=== PATIENT | male | born 1975 | race Caucasian/White ===

== ENCOUNTER → 2016-07-27 | Outpatient (CLI) | payer OTHER ==
--- NOTE | 2016-07-27 08:08 | CT ---
EXAMINATION TYPE: CT chest w con DATE OF EXAM: 07/27/2016 7:59 AM COMPARISON: NONE HISTORY: SOB CT DLP: 264.60 mGycm Automated exposure control for dose reduction was used. CONTRAST: CT scan of the chest is performed with IV Contrast, patient injected with 100 ml mL of Omnipaque 300. FINDINGS: LUNGS: The lungs are grossly clear, there is no concerning parenchymal mass or nodule identified. T here is no pleural effusion or pneumothorax seen. The tracheobronchial tree is patent. MEDIASTINUM: There are no greater than 1 cm hilar or mediastinal lymph nodes. No pericardial effusi on is seen. OTHER: No additional significant abnormality is seen. IMPRESSION: 1. No evidence of acute intrathoracic process or sizable pulmonary nodule.
== END | disposition home or self-care (01) ==
LOC: RADCTMAIN 07:24
PROVIDERS: ATTEND Internal Medicine Critical Care Medicine
DX: R06.02 Shortness of breath (principal)
CPT/HCPCS: 71260; Q9967

== ENCOUNTER → 2020-03-21 | Outpatient (CLI) | payer OTHER ==
[2020-03-21 16:26] LABS: Basophils # (A) 0.1 k/uL (0-0.2); Basophils % (A) 1 %; Eosinophils # (A) 0.2 k/uL (0-0.7); Eosinophils % (A) 2 %; HCT 46.7 % (39.0-53.0); HGB 15.2 gm/dL (13.0-17.5); Lymphocytes # (A) 2.2 k/uL (1.0-4.8); Lymphocytes % (A) 32 %; MCH 26.9 pg (25.0-35.0); MCHC 32.6 g/dL (31.0-37.0); MCV 82.5 fL (80.0-100.0); Mean Platelet Volume 6.3; Monocytes # (A) 0.4 k/uL (0-1.0); Monocytes % (A) 6 %; Neutrophils # (A) 3.7 k/uL (1.3-7.7); Neutrophils % (A) 56 %; Platelet Count 257 k/uL (150-450); RBC 5.66 m/uL (4.30-5.90); RDW 13.6 % (11.5-15.5); WBC 6.7 k/uL (3.8-10.6)
[2020-03-21 23:01] LABS: African American GFR (CKD) 83.5 (60.0-200.0); Albumin 4.7 g/dL (3.80-4.90); Albumin/Globulin Ratio 2.24 (1.60-3.17); Anion Gap 8.5 mmol/L (4.00-12.00); BUN/Creat Ratio 18.33 Ratio (12.00-20.00); Calcium 9.8 mg/dL (8.7-10.3); Carbon Dioxide 26.5 mmol/L (21.6-31.8); Globulin 2.1 g/dL (1.6-3.3); Non-African American GFR(CKD) 72.1 (60.0-200.0); Total Bilirubin 0.3 mg/dL (0.3-1.2); Total Protein 6.8 g/dL (6.2-8.2)
[2020-03-22 00:30] LABS: Hepatitis A Antibody IgM Non-Reactive (Non-Reactive); Hepatitis B Core IgM Non-Reactive (Non-Reactive); Hepatitis B Surface Antigen Non-Reactive (Non-Reactive); Hepatitis C IgG Antibody Non-Reactive (Non-Reactive)
[2020-03-22 08:10] LABS: Chromatin Antibody <0.2 AI; DNA Double-Stranded NEGATIVE (NEGATIVE); JO-1 IgG Antibody <0.2 AI; Scleroderma SC-70 Ab <0.2 AI
== END | disposition home or self-care (01) ==
LOC: LABWHC1 15:07
PROVIDERS: ATTEND Allergy & Immunology
DX: T78.2XXA Anaphylactic shock, unspecified, initial encounter (principal); R74.0 Nonspecific elevation of levels of transaminase and lactic acid dehydrogenase [LDH]; R53.83 Other fatigue
CPT/HCPCS: 36415; 80053; 80074; 82977; 83516; 83520; 84443; 85025; 86038; 86225; 86235

== ENCOUNTER → 2020-06-04 | Outpatient (CLI) | payer OTHER | END | disposition home or self-care (01) | LOC: LABWHC1 09:51 | PROVIDERS: ATTEND Allergy & Immunology | DX: T78.2XXD Anaphylactic shock, unspecified, subsequent encounter (principal) | CPT/HCPCS: 36415; 83520 ==

== ENCOUNTER → 2020-07-09 | Outpatient (CLI) | payer OTHER ==
[2020-07-10 01:24] LABS: Soybean IgE <0.10 kU/L; Walnut IgE (Food) <0.10 kU/L
[2020-07-10 01:25] LABS: Peanut IgE <0.10 kU/L; Shrimp IgE <0.10 kU/L
[2020-07-10 03:23] LABS: Dog Dander IgE <0.10 kU/L; Egg White IgE <0.10 kU/L
[2020-07-10 03:24] LABS: Elm IgE <0.10 kU/L; Maple (Box Elder) IgE <0.10 kU/L
[2020-07-10 03:25] LABS: Oak IgE <0.10 kU/L
[2020-07-10 04:40] LABS: Cat Epith & Dander IgE <0.10 kU/L; Cladosporian herbarum IgE <0.10 kU/L; Dermato. farinae IgE <0.10 kU/L
[2020-07-10 04:41] LABS: Aspergillus fumagatus IgE <0.10 kU/L; Birch IgE <0.10 kU/L
[2020-07-10 12:04] LABS: Almond IgE <0.10 kU/L (<0.10); Almond IgE Class CLASS 0; Pecan IgE <0.10 kU/L (<0.10); Pecan IgE Class CLASS 0
[2020-07-10 12:06] LABS: Cashew IgE <0.10 kU/L (<0.10); Cashew IgE Class CLASS 0; Pistachio IgE Class CLASS 0; Pork IgE Class CLASS 0
[2020-07-10 12:07] LABS: Beef IgE <0.10 kU/L (<0.10); Beef IgE Class CLASS 0; Chocolate IgE Class CLASS 0; Salmon IgE <0.10 kU/L (<0.10); Salmon IgE Class CLASS 0
[2020-07-10 12:08] LABS: Alt. alternata IgE Class CLASS 0; Alternaria alternata IgE <0.10 kU/L (<0.10); Timothy Grass IgE <0.10 kU/L (<0.10); Timothy Grass IgE Class CLASS 0; Willow Tree IgE <0.10 kU/L (<0.10)
== END | disposition home or self-care (01) ==
LOC: LABWHC1 12:59
PROVIDERS: ATTEND Allergy & Immunology
DX: T78.2XXA Anaphylactic shock, unspecified, initial encounter (principal)
CPT/HCPCS: 36415; 86003

== ENCOUNTER 2022-04-13 10:03 | Emergency (ER) | payer OTHER ==
[2022-04-13 10:14] VITALS: PULSE 62
[2022-04-13 10:24] VITALS: BP 123/89; RESP 16; TEMP 98
--- NOTE | 2022-04-13 10:45 | ED ---
General Adult HPI - General Chief complaint: ENT Stated complaint: aspiration nut yesterday Time Seen by Provider: 04/13/22 10:36 Source: patient, family, RN notes reviewed, old records reviewed Mode of arrival: ambulatory Limitations: no limitations - History of Present Illness Initial comments: Well-appearing 46-year-old male presents to the emergency room with family complaining of inhaling a pistachio, unshelled, yesterday afternoon. Patient states that he took a deep breath and he felt it go into his lungs. He has had an increased cough and some discomfort since. 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 -: days(s) (1) Location: chest Radiation: non-radiation Associated Symptoms: cough Treatments Prior to Arrival: none - Related Data Allergies Allergy/AdvReac Type Severity Reaction Status Date / Time diphenhydramine Allergy Swelling Verified 04/13/22 10:14 [From Mercedes] Review of Systems ROS Statement: Those systems with pertinent positive or pertinent negative responses have been documented in the HPI. ROS Other: All systems not noted in ROS Statement are negative. Past Medical History Past Medical History: Hyperlipidemia History of Any Multi-Drug Resistant Organisms: None Reported Past Surgical History: No Surgical Hx Reported Past Psychological History: No Psychological Hx Reported Smoking Status: Never smoker Past Alcohol Use History: Rare Past Drug Use History: None Reported General Exam Limitations: no limitations General appearance: alert, in no apparent distress Head exam: Present: atraumatic, normocephalic, normal inspection Eye exam: Present: normal appearance. Absent: scleral icterus, conjunctival injection, periorbital swelling ENT exam: Present: normal oropharynx, mucous membranes moist Neck exam: Present: normal inspection, full ROM. Absent: meningismus Respiratory exam: Present: normal lung sounds bilaterally. Absent: respiratory distress, wheezes, rales, rhonchi, stridor, chest wall tenderness, accessory muscle use, decreased breath sounds Cardiovascular Exam: Present: regular rate Neurological exam: Present: alert, oriented X3, normal gait Psychiatric exam: Present: normal affect, normal mood Skin exam: Present: warm, dry, normal color. Absent: cyanosis, diaphoretic, petechiae, pallor Course Vital Signs 04/13/22 04/13/22 10:09 10:21 Temperature 98.0 F 98 F Pulse Rate 62 62 Respiratory 18 16 Rate Blood Pressure 150/99 123/89 O2 Sat by Pulse 97 99 Oximetry Medical Decision Making - Medical Decision Making Chest x-ray shows no acute cardiopulmonary process. No retained foreign body identified however the pistachio may be a radiolucent on x-ray. He denies any esophageal foreign body sensation. Vital signs are stable, oxygen saturation is 99% on room air. Lungs sounds are clear to auscultation. Patient does not have a persistent cough and is in no respiratory distress. He'll be discharged home to follow up with his primary care doctor. Strict return parameters were discussed with the patient to return if he develops fever, difficulty breathing or chest pain. He is agreeable to this plan of care. Case discussed with Dr. Sinclair Disposition Clinical Impression: Aspiration into airway Disposition: HOME SELF-CARE Condition: Good Instructions (If sedation given, give patient instructions): Acute Cough (ED) Additional Instructions: Return to the emergency room with any new or concerning symptoms including difficulty breathing, fevers or chest pain. Follow-up with your primary care doctor this week. Is patient prescribed a controlled substance at d/c from ED?: No Referrals: Anant Whelan MD [Primary Care Provider] - 1-2 days Time of Disposition: 11:33
--- NOTE | 2022-04-13 11:22 | XR ---
EXAMINATION TYPE: XR chest 2V DATE OF EXAM: 04/13/2022 COMPARISON: 03/05/2022 HISTORY: 46-year-old male nut aspiration TECHNIQUE: PA and lateral views FINDINGS: The cardiomediastinal silhouette, aorta, and pulmonary vasculature are within normal limits. Lungs an d pleural spaces are clear. IMPRESSION: No acute cardiopulmonary process. No retained radiopaque foreign body identified. Note that a nut may be radiolucent on x-ray.
== END 2022-04-13 11:44 | disposition home or self-care (01) ==
LOC: EC 10:03
DX: T17.828A Food in other parts of respiratory tract causing other injury, initial encounter (principal); Z88.8 Allergy status to other drugs, medicaments and biological substances
CPT/HCPCS: 71046; 99283

== ENCOUNTER → 2023-03-14 | Outpatient (CLI) | payer OTHER ==
--- NOTE | 2023-03-14 12:13 | P.SLEEP ---
History of Present Illness DATE: 03/14/2023 CONSULTATION/NEW PATIENT EVALUATION HISTORY OF PRESENT ILLNESS/SLEEP-WAKE EVALUATION: 47-year-old gentleman had been evaluated in the sleep center for possible obstructive sleep apnea hypopnea syndrome. SLEEP SCHEDULE: Usually sleep schedule from 10 PM to 6 AM on weekdays and from 10 PM to 7 AM on weekend. FALLING ASLEEP: No problems with falling asleep. DURING SLEEP: Patient has loud snoring and according to his witnessed episodes of stop breathing during the sleep. Patient wakes up from sleep with gasping for air up to 5 times at night with one episode of nocturia. Positive history of jerking movements during the sleep. No history of hypnogogical hallucinations, sleep paralysis, or cataplexy. DURING THE DAY/WAKE STATE: In the morning patient wake up tired, falling asleep during the day.. [place] sleepiness scale is slightly increased to 10. Usually patient doesn't take naps. PAST MEDICAL HISTORY: Hypertension in the past, depression, anxiety, hyperlipidemia. PAST SURGICAL HISTORY: Ganglion cyst removed, surgery for carpal tunnel syndrome. MEDICATIONS: Pravastatin 10 mg once a day, Wellbutrin 150 mg once a day. SOCIAL HISTORY: Negative for smoking, alcohol consumption occasional. FAMILY HISTORY: Hypertension, arthritis, lung problems. REVIEW OF SYSTEMS: Loud snoring, multiple awakenings from sleep, sleepiness during the day. No fevers. No double vision. No recent chest pain. No shortness of breath. No abdominal pain. No bleeding episodes. No blood in urine. No seizure episodes. PHYSICAL EXAMINATION: GENERAL: A pleasant patient without any distress. VITAL SIGNS: BP 132/91, HR 66, RR 16, weight 219.6 pounds, height 5 foot 9-3/4 inches, body mass index 31.6. HEENT: PERRLA, EOMI. Evaluation of oropharynx showed tongue protrudes midline, low position of soft palate Mallampati 2. NECK: Supple. No JVD. Thyroid is not palpable. 17 inches in circumference. LUNGS: Clear to percussion and to auscultation. Good air exchange. No wheezing or rhonchi. HEART: S1, S2 regular. No murmurs, gallops or rubs. ABDOMEN: Soft and nontender. Bowel sounds are present. No organomegaly appreciated. EXTREMITIES: No clubbing or cyanosis. CARDIAC MONITOR TECHNICIAN: Awake, alert, and oriented x3. Cranial nerves 2 to 7 intact. There is no fasciculation or atrophy noted. No focal deficits observed. ASSESSMENT: 1. Loud snoring, witnessed episodes of stop breathing during the sleep, wide neck 17 inches in circumference, sleepiness [place] Sleepiness Scale is 10, retrognathia 2 mm. Obstructive sleep apnea hypopnea syndrome. 2. History of jerking movements during the sleep, possibly periodic limb movements. 3. History of hypertension in the past. 4. History of depression. 5 history of anxiety. 6 . Hyperlipidemia. 7. Mild obesity by body mass index 31.6. PLAN: 1. Polysomnography for evaluation of patient's breathing during sleep. 2. CPAP/BiPAP titration if sleep study confirms obstructive sleep apnea- hypopnea syndrome. 3. Preferable position during sleep on the side. 4. No driving if patient feels any sleepiness. Patient is aware of civil and criminal liability for unsafe driving. 5. Sleep hygiene with regular sleep time for at least 7.5-8 hours. 6. Watching weight. Thank you very much for referring this patient for consultation. Sincerely, Koby Tavares MD, PhD, FAASM. Diplomat of [place] [employer], Sleep Medicine Board by [place] [employer] Data Conversion Developer of [facility] [place] Past Medical History Past Medical History: Hyperlipidemia History of Any Multi-Drug Resistant Organisms: None Reported Past Surgical History: No Surgical Hx Reported Past Psychological History: No Psychological Hx Reported Smoking Status: Never smoker Past Alcohol Use History: Rare Past Drug Use History: None Reported Medications and Allergies Allergies Allergy/AdvReac Type Severity Reaction Status Date / Time diphenhydramine Allergy Swelling Verified 04/13/22 10:14 [From Benadryl] Sleep Note - Sleep Note Sleep Note: Temperature: Pulse Rate: Respiratory Rate: Blood Pressure: SpO2: Height: Weight: BMI: Neck Circumference:
== END ==
LOC: 3 N SLEEP 10:47
PROVIDERS: ATTEND Internal Medicine
DX: G47.33 Obstructive sleep apnea (adult) (pediatric) (principal); I10 Essential (primary) hypertension; F32.A Depression, unspecified; F41.9 Anxiety disorder, unspecified; E78.5 Hyperlipidemia, unspecified; E66.9 Obesity, unspecified; Z68.31 Body mass index [BMI] 31.0-31.9, adult; Z88.8 Allergy status to other drugs, medicaments and biological substances
CPT/HCPCS: 99211

== ENCOUNTER 2023-04-20 19:33 | Outpatient (CLI) | payer OTHER ==
--- NOTE | 2023-04-21 17:48 | P.PCN ---
Description of Procedure: POLYSOMNOGRAPHY REPORT PROCEDURE(S)/DATE(S): Polysomnography 04/20/2023 CLINICAL: Patient has been seen in the sleep center for evaluation of obstructive sleep apnea-hypopnea syndrome. Please see my consultation. Sleep study has been done for evaluation of patient breathing during the sleep. PROCEDURE: The standard montage for clinical polysomnography included the electroencephalogram, the electrooculogram, the mentalis surface electromyography and Lead II cardiography. The respiratory battery consisted of measurements of nasal/buccal air flow, pressure transducer measurements from nose, thoracic and/or abdominal effort and intercostal surface electromyography. Video monitoring has been done to check for any parasomnia events. Nocturnal oxyhemoglobin saturations were obtained by finger oximetry. Step-lara titration with positive airway pressure was utilized to control the respiratory events, if necessary. RESULTS: During the diagnostic sleep study sleep efficiency was normal 93.3 %. Latency to sleep onset was short 5.5 min. Sleep architecture showed stage NI was slightly increased to 10.7 %, Delta sleep was normal 12.8 %, REM sleep was normal 23.5 %. Respiratory channel showed 7 obstructive apneas, 0 mixed apneas, 5 central apneas, 49 hypopneas with lowest oxygen level 86 %. Total apnea hypopnea index was 9.3. Heart rate was in the range between 52 and 60, average 56. EMG showed 0 periodic limb movements per hour. IMPRESSIONS: 1. Obstructive sleep apnea hypopnea syndrome. 2. No significant periodic limb movements have been documented. 3. History of depression and anxiety. Please see other impressions from consultation PLAN: 1. The patient will have AutoPAP treatment for correction of respiratory abnormalities during the sleep. 2. Losing weight program. 3. Sleep hygiene with regular time in bed for at least 7-1/2 hours. 4. No driving if feeling sleepiness. 5. I will see patient for follow-up visit related clinical response on treatment, compliance with treatment and make any necessary adjustments related to mask fitting pressure and humidification. Thank you very much for allowing me to participate in the management of your patient. Sincerely, Koby Tavares MD, PhD, FAASM. Diplomat of [place] [employer], Sleep Medicine Board by [employer] Coremaker Apprentice of [facility]
== END 2023-04-21 05:40 | disposition home or self-care (01) ==
LOC: 3 N SLEEP 19:33
PROVIDERS: ATTEND Internal Medicine
DX: G47.33 Obstructive sleep apnea (adult) (pediatric) (principal); F32.A Depression, unspecified; F41.9 Anxiety disorder, unspecified; Z88.8 Allergy status to other drugs, medicaments and biological substances
CPT/HCPCS: 95810

== ENCOUNTER → 2023-07-27 | Outpatient (CLI) | payer OTHER ==
--- NOTE | 2023-07-27 16:59 | P.PN ---
Subjective DATE: 07/27/2023 FOLLOW UP VISIT. Patient with obstructive sleep apnea hypopnea syndrome return to sleep center for follow-up visit. Recently patient had sleep study which documented obstructive sleep apnea hypopnea syndrome. Patient was initiated on PAP therapy and today is first visit after treatment was started. Patient was able to use PAP equipment every night for the whole night. The patient does not have significant problems with the mask, PAP pressure and humidification. [place] sleepiness scale is 5, which is normal. I checked information from PAP unit. PAP unit pressure 5-14, average 8.6 cm H2O. Usage is 100 % for more then 4 hours, average 8.1 hours per night. Leak is 12 l/m, which is in acceptable range. Apnea Hypopnea Index is 1.3, which is normal. MEDICATIONS:1. Pravastatin 10 mg once a day 2. Wellbutrin 150 mg once a day During physical exam: GENERAL: A pleasant patient without any distress. VITAL SIGNS: BP 128/82, HR 75, RR 18 , weight 224.8, temperature 98.4, oxygen saturation at room air 96% . HEENT: PERRLA, EOMI. position of soft palate Mallapati 2 . NECK: Supple. No JVD. LUNGS: Clear to percussion and to auscultation. Good air exchange. No wheezing or rhonchi. HEART: S1, S2 regular. ABDOMEN: Soft and nontender.[] EXTREMITIES: No clubbing or cyanosis. RESOURCE DEVELOPMENT MANAGER: Awake, alert, and oriented x3. No focal deficit. Impressions: 1. Obstructive sleep apnea-hypopnea syndrome. Patient demonstrated great compliance with treatment, benefiting from treatment. 2. History of depression. 3. History of hypertension in the past. 4. History of anxiety. 5. Hyperlipidemia. 6. Mild obesity, patient increased weight of 5 pounds comparing with previous visit. 7. 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 Plan: 1. Continue using PAP equipment every night for the whole night. 2. To change air filter at least 1-2 times per month. 3. PAP unit should stay lower then position of the head. 4. Advised patient to remove all remaining water from humidifier canister daily and make it dry after each usage. Refill canister with fresh distilled water before each usage. 5. Sleep hygiene with regular time in bed for at least 8 hours. 6. Precautions related to driving. No driving if feel any sleepiness. 7. I will maintain prescription for PAP supplies including mask, tube, filters. 8. Follow up visit in 6 months or earlier if patient has any problems. 9. Watching weight. Thank you very much for allowing me to participate in the management of your patient. Koby Tavares MD, PhD, FAASM. Diplomat of [place] [employer], Sleep Medicine Board by [employer] Boiler Control Room Operator of [facility] [place]
== END ==
LOC: 3 N SLEEP 15:46
PROVIDERS: ATTEND Internal Medicine
DX: G47.33 Obstructive sleep apnea (adult) (pediatric) (principal); F32.A Depression, unspecified; I10 Essential (primary) hypertension; F41.9 Anxiety disorder, unspecified; E78.5 Hyperlipidemia, unspecified; E66.9 Obesity, unspecified; Z99.89 Dependence on other enabling machines and devices; Z88.8 Allergy status to other drugs, medicaments and biological substances

== ENCOUNTER → 2024-03-01 | Outpatient (CLI) | payer OTHER ==
--- NOTE | 2024-03-01 11:40 | P.PROGSL ---
Subjective DATE: 03/01/2024 FOLLOW UP VISIT. Patient with obstructive sleep apnea hypopnea syndrome return to sleep center for follow-up visit. Information from previous visit have been reviewed. Patient is using PAP equipment every night for the whole night, getting PAP supplies in time. The patient does not have significant problems with the mask, PAP unit and humidification. [place] sleepiness scale is increased to 14. I checked information from PAP unit. PAP unit pressure 5-14, average 8.5 cm H2O. Usage is 100% for more then 4 hours, average 8.1 hours per night. Leak is 10 l/m, which is in acceptable range. Apnea Hypopnea Index is 1.1, which is normal. MEDICATIONS have been reviewed, please see below. During physical exam: GENERAL: A pleasant patient without any distress. VITAL SIGNS: Please see below, weight is 231 lbs. HEENT: PERRLA, EOMI.low position of soft palate, Mallapati 2-3. NECK: Supple. No JVD. LUNGS: Clear to percussion and to auscultation. Good air exchange. No wheezing or rhonchi. HEART: S1, S2 regular. ABDOMEN: Soft and nontender.[] EXTREMITIES: No clubbing or cyanosis. CLAY PRESS OPERATOR: Awake, alert, and oriented x3. No focal deficit. Impressions: 1. Obstructive sleep apnea-hypopnea syndrome. Patient demonstrated great compliance with treatment, benefiting from treatment. 2. History of hypertension. 3. History of depression. 4. History of anxiety. 5. Hyperlipidemia. 6. Mild obesity, BMI 33.7, patient increased weight on 7 pounds comparing with the previous visit. Plan: 1. Continue using PAP equipment every night for the whole night. 2. Sleep hygiene with regular time in bed for at least 7.5-8 hours 3. PAP unit should stay lower then position of the head. 4. Advised patient to remove all remaining water from humidifier canister daily and make it dry after each usage. Refill canister with fresh distilled water before each usage. 5. Watching and losing weight. 6. Precautions related to driving. No driving if feel any sleepiness. 7. I will maintain prescription for PAP supplies including mask, tube, filters. 8. Follow up visit in 6 months or earlier if patient has any problems. Thank you very much for allowing me to participate in the management of your patient. Koby Tavares MD, PhD, FAASM. Diplomat of [place] [employer], Sleep Medicine Board by [employer] Board of [employer] Medicine Carrot Grader Inspector of [facility] [place] Objective - Vital Signs Vital Signs: Intake & Output 02/29/24 03/01/24 03/01/24 18:59 06:59 18:59 Weight 104.78 kg Home Medications: Home Medications Medication Instructions Recorded Confirmed Type buPROPion HCL [Wellbutrin SR] 150 mg PO DAILY 03/01/24 03/01/24 History
== END ==
LOC: 3 N SLEEP 10:46
PROVIDERS: ATTEND Internal Medicine
CPT/HCPCS: 99212

== ENCOUNTER → 2024-10-17 | Outpatient (CLI) | payer OTHER ==
[2024-10-17 10:33] VITALS: BP 127/79; PULSE 62; RESP 16; TEMP 98.1
--- NOTE | 2024-10-17 11:30 | P.PROGSL ---
Subjective DATE: 10/17/2024 FOLLOW UP VISIT. Patient with obstructive sleep apnea hypopnea syndrome return to sleep center for follow-up visit. Information from previous visit have been reviewed. Patient is using PAP equipment every night for the whole night, getting PAP supplies in time. The patient does not have significant problems with the mask, PAP unit and humidification. [place] sleepiness scale is 6. I checked information from PAP unit. PAP unit pressure 5-14, average 8.5 cm H2O. Usage is 100% for more then 4 hours, average 7.9 hours per night. Leak is 10 l/m, which is in acceptable range. Apnea Hypopnea Index is 1.5, which is normal. MEDICATIONS have been reviewed, please see below. During physical exam: GENERAL: A pleasant patient without any distress. VITAL SIGNS: Please see below, weight is 229 lbs. HEENT: PERRLA, EOMI.low position of soft palate, Mallapati 23. NECK: Supple. No JVD. LUNGS: Clear to percussion and to auscultation. Good air exchange. No wheezing or rhonchi. HEART: S1, S2 regular. ABDOMEN: Soft and nontender.[] EXTREMITIES: No clubbing or cyanosis. HUMAN RESOURCES EXECUTIVE: Awake, alert, and oriented x3. No focal deficit. Impressions: 1. Obstructive sleep apnea-hypopnea syndrome. Patient demonstrated great compliance with treatment, benefiting from treatment. 2. Hypertension. 3. History of depression. 4. History of anxiety. 5. Hyperlipidemia. 6. Mild obesity, BMI 32.8, patient lost 2 pounds comparing with previous visit. Plan: 1. Continue using PAP equipment every night for the whole night. 2. Sleep hygiene with regular time in bed for at least 7.5-8 hours 3. PAP unit should stay lower then position of the head. 4. Advised patient to remove all remaining water from humidifier canister daily and make it dry after each usage. Refill canister with fresh distilled water before each usage. 5. Watching and losing weight. 6. Precautions related to driving. No driving if feel any sleepiness. 7. I will maintain prescription for PAP supplies including mask, tube, filters. 8. Follow up visit in 8 months or earlier if patient has any problems. Thank you very much for allowing me to participate in the management of your patient. Koby Tavares MD, PhD, FAASM. Diplomat of [place] [employer], Sleep Medicine Board by [employer] Wafer Fabricator of [facility] [place] Objective - Vital Signs Vital Signs: Vital Signs Temp 98.1 F 10/17/24 10:32 Pulse 62 10/17/24 10:32 Resp 16 10/17/24 10:32 BP 127/79 10/17/24 10:32 Pulse Ox 95 10/17/24 10:32 FiO2 Intake & Output 10/16/24 10/17/24 10/17/24 18:59 06:59 18:59 Weight 103.873 kg Home Medications: Home Medications Medication Instructions Recorded Confirmed Type buPROPion HCL [Wellbutrin SR] 150 mg PO DAILY 03/01/24 03/01/24 History
== END ==
LOC: 3 N SLEEP 10:25
PROVIDERS: ATTEND Internal Medicine
DX: G47.33 Obstructive sleep apnea (adult) (pediatric) (principal); I10 Essential (primary) hypertension; E78.5 Hyperlipidemia, unspecified; E66.9 Obesity, unspecified; F41.9 Anxiety disorder, unspecified; F32.A Depression, unspecified; Z68.32 Body mass index [BMI] 32.0-32.9, adult; Z91.013 Allergy to seafood; Z88.8 Allergy status to other drugs, medicaments and biological substances; Z99.89 Dependence on other enabling machines and devices
CPT/HCPCS: 99212

== ENCOUNTER → 2024-10-30 | Outpatient (CLI) | payer OTHER ==
--- NOTE | 2024-10-30 17:06 | CA ---
Stress Echo Report Herberth Hidalgo Age: 49 Gender: M : 1975 Exam Date: 10/30/2024 10:29 Exam Location: [facility] Ht (in): 70 Wt (lb): 220 Ordering Physician: Anant Whelan MD Referring Physician: Lynn Tsai Observer Helper: MARCI Technologist Procedure CPT: Indication: R94.31 abn ekg ICD-9 Codes: Rhythm: Patient History: Cardiac Medications: EZETIMIBE,,,, TERBINAFINE,,, Medications in past 24 hours: Contrast: N/A Stress Results Protocol: Reagan Total dose(mL): NA Exercise Duration (min:sec): 11:[address] Depression (mm): Angina Score: Valenzuela Score: METS: 12.1 Resting HR: 66 Resting BP: 127 / 93 Peak HR: 154 Peak BP: 221 / 92 Max Predicted HR: 169 91 % Max Predicted HR Target HR: 144 Double Product: 22716 Stress Summary: BP Response: Reason for Termination: TARGET HR REACHED/MAX EXERTION Cardiac Symptoms: NO SYMPTOMS ECG Analysis Resting ECG: Stress ECG: Arrhythmia: Echo Analysis Resting Echo: Peak Echo Analysis: MEASUREMENTS (Male/Female) Normal Values CONCLUSIONS Baseline EKG revealed normal sinus rhythm without significant ST-T changes. Patient walked on a standard Reagan protocol for 11 minutes 53 seconds and achieved a maximal heart rate of 154 bpm which is well above 85% of predicted maximal. There were no symptoms of angina. There were no EKG changes to indicate ischemia. There was no significant arrhythmia. This is a negative stress test with excellent exercise capacity Baseline echo images revealed normal wall motion and wall thickening of all segments. At peak exercise there was excellent augmentation of left ventricular contractility involving all segment suggesting that there is no evidence of any stress-induced ischemia on the stress echocardiogram. Final impression: Normal stress test by EKG criteria and echocardiographic criteria with excellent exercise capacity Dr. Nadine Murray MD (Electronically Signed) Final Date: 30 Oct 2024 17:05
== END | disposition home or self-care (01) ==
LOC: RADNMMAIN 10:00
PROVIDERS: ATTEND Internal Medicine Geriatric Medicine
DX: R94.31 Abnormal electrocardiogram [ECG] [EKG] (principal)
CPT/HCPCS: 93351